=== PATIENT | male | born 1990 | race Caucasian/White ===

== ENCOUNTER 2017-10-01 13:04 | Emergency (ER) | payer MEDICAID ==
[~2017-10-01] VITALS: Ht 185.4 cm; Wt 88.0 kg
[2017-10-01 13:12] VITALS: BP 137/82
== END 2017-10-01 15:59 | disposition home or self-care (01) ==
LOC: ED 15:53
DX: S06.0X0A Concussion without loss of consciousness, initial encounter (principal); W18.39XA Other fall on same level, initial encounter; Y93.66 Activity, soccer; Y92.322 Soccer field as the place of occurrence of the external cause; Y99.8 Other external cause status
CPT/HCPCS: 70450; 72125; 99284

== ENCOUNTER 2018-10-24 19:35 | Emergency (ER) | payer MEDICAID ==
[2018-10-24 20:48] VITALS: BP 132/67
== END 2018-10-24 20:51 | disposition home or self-care (01) ==
LOC: ED 20:45
DX: S43.004A Unspecified dislocation of right shoulder joint, initial encounter (principal); X58.XXXA Exposure to other specified factors, initial encounter; Y93.89 Activity, other specified; Y92.328 Other athletic field as the place of occurrence of the external cause; Y99.8 Other external cause status
CPT/HCPCS: 99283